=== PATIENT | female | born 2000 | race Caucasian/White ===

== ENCOUNTER 2018-11-10 11:46 | Inpatient (IN) | payer MEDICAID ==
[~2018-11-10] VITALS: Ht 152.4 cm; Wt 80.3 kg
[2018-11-10 13:00] VITALS: BP 117/75
[2018-11-10] MEDS ORDERED: PREN-380 PO (13:39)
[2018-11-10] MEDS ORDERED: BETAMETH ACET/BETAMETH NA PH 30 MG/5 ML VIAL IM STA (19:21)
[2018-11-11] MEDS ORDERED: BETAMETH ACET/BETAMETH NA PH 30 MG/5 ML VIAL IM ONE (04:13)
--- NOTE | 2018-11-11 08:05 | NUR ---
PATIENT HAS BEEN SCREENED AND CATEGORIZED LOW NUTRITION RISK. PATIENT WILL BE SEEN WITHIN 7 DAYS OF ADMISSION. 11/17/[address]
== END 2018-11-11 16:45 | disposition home or self-care (01) | DRG 566 ==
LOC: MLD 11:46 → OBSVTOIN 19:00 → MLD 20:06
PROVIDERS: ADMIT Obstetrics & Gynecology; ATTEND Obstetrics & Gynecology
DX: O99.213 Obesity complicating pregnancy, third trimester (principal); Z3A.35 35 weeks gestation of pregnancy; O60.03 Preterm labor without delivery, third trimester
CPT/HCPCS: G0378 ×7; 76815; 81000; J0702; Q0092

== ENCOUNTER 2018-11-12 04:22 | Observation (INO) | payer MEDICAID ==
[~2018-11-12] VITALS: Ht 157.5 cm; Wt 80.3 kg
[~2018-11-12 04:22] MED LIST: PREN-380 PO
[2018-11-12] MEDS ORDERED: BETAMETH ACET/BETAMETH NA PH 30 MG/5 ML VIAL IM ONE ×2 (04:35→04:38)
[2018-11-12 05:56] VITALS: BP 116/61
== END 2018-11-12 05:20 | disposition home or self-care (01) ==
LOC: EDUNIT# 04:22 → MLD 04:22
PROVIDERS: ADMIT Obstetrics & Gynecology; ATTEND Obstetrics & Gynecology
DX: O62.9 Abnormality of forces of labor, unspecified (principal); Z3A.36 36 weeks gestation of pregnancy; O60.03 Preterm labor without delivery, third trimester
CPT/HCPCS: 59025; 96372; G0378; J0702

== ENCOUNTER 2018-12-06 08:02 | Inpatient (IN) | payer MEDICAID ==
[~2018-12-06] VITALS: Ht 149.9 cm; Wt 81.6 kg
[2018-12-06] MEDS: LACTATED RINGERS 1,000 ML IV SCH (03:00)
[2018-12-06] MEDS ORDERED: PROMETHAZINE 25 MG/ML VIAL IVP PRN (10:05)
[2018-12-06] MEDS ORDERED: NALBUPHINE 10 MG/ML AMP IVP PRN (10:05)
[2018-12-06 10:15] VITALS: BP 123/84
[2018-12-06] MEDS ORDERED: INFLUENZA VACCINE QUAD 0.5 ML SYR IM PRN (10:15)
[2018-12-06] MEDS ORDERED: CARBOPROST 250 MCG/ML AMP IM PRN (10:35)
[2018-12-06] MEDS ORDERED: METHYLERGONOVINE 0.2 MG/ML AMP IM PRN (10:35)
[2018-12-06] MEDS ORDERED: AMPICILLIN 2,000 MG VIAL ONE (10:47)
[2018-12-06] MEDS ORDERED: AMPICILLIN 2,000 MG in NACL 0.9% MINI-BAG PLUS 100 ML IV SCH (11:00)
[2018-12-06 13:00] LABS: BASOPHILS % (AUTO) 0.4 % (0.0-2.0); EOSINOPHILS # (AUTO) 0.2 K/uL (0-0.4); EOSINOPHILS % (AUTO) 2.3 % (0.0-4.0); HEMATOCRIT 37.5 % (36-48); HEMOGLOBIN 12.3 g/dL (12.0-16.0); LYMPHOCYTES # (AUTO) 2.3 K/uL (2.5-16.5); LYMPHOCYTES % (AUTO) 28.9 % (20.5-51.1); MEAN CORPUSCULAR HEMOGLOBIN 28 pg (27-31); MEAN CORPUSCULAR HGB CONC 33 g/dL (33-37); MEAN CORPUSCULAR VOLUME 83.8 fL (80-94); MONOCYTES # (AUTO) 0.5 K/uL (0.8-1.0); MONOCYTES % (AUTO) 6.1 % (1.7-9.3); NEUTROPHILS # (AUTO) 4.9 K/uL (1.8-7.7); NEUTROPHILS % (AUTO) 62.3 % (42.2-75.2); PLATELET COUNT (AUTO) 226 K/uL (140-450); RED BLOOD CELL COUNT(AUTO) 4.48 MIL/uL (4.20-5.40); RED CELL DISTRIBUTION WIDTH 14.5 % (11.6-13.7); WHITE BLOOD COUNT (AUTO) 7.8 K/uL (4.5-11.0)
[2018-12-06 13:02] LABS: ANION GAP 16.5 (8-16); CARBON DIOXIDE 20.3 mmol/L (21-32); CREATININE 0.6 mg/dL (0.6-1.3); POTASSIUM 3.8 mmol/L (3.5-5.1)
[2018-12-06 13:08] LABS: ALBUMIN 2.4 g/dL (3.4-5.0); TOTAL BILIRUBIN 0.2 mg/dL (0.0-1.0)
[2018-12-06] MEDS ORDERED: NALBUPHINE 10 MG/ML AMP ONE ×2 (13:20→23:27)
[2018-12-06 13:43] LABS: APPEARANCE,URINE SL CLOUDY (CLEAR); BILIRUBIN,URINE NEGATIVE (NEGATIVE); BLOOD, URINE 3+ (NEGATIVE); COLOR,URINE YELLOW (YELLOW); LEUKOCYTE ESTERASE ,URINE NEGATIVE (NEGATIVE); NITRITE, URINE NEGATIVE (NEGATIVE); UGLUCOSE NEGATIVE (NEGATIVE)
[2018-12-06 13:59] LABS: RBC,URINE 50-80 /HPF (0-5); WBC,URINE 0-5 /HPF (0-5)
[2018-12-06] MEDS: AMPICILLIN 1,000 MG in NACL 0.9% MINI-BAG PLUS 50 ML IV SCH ×3 (15:00→23:15)
[2018-12-06] MEDS ORDERED: AMPICILLIN 1,000 MG VIAL ONE ×3 (16:48→22:37)
[2018-12-06] MEDS ORDERED: ONDANSETRON 4 MG/2 ML VIAL ONE (18:57)
[2018-12-06] MEDS ORDERED: PROMETHAZINE 25 MG/ML VIAL ONE (23:28)
[2018-12-07] MEDS ORDERED: MAG SULF 20 GM/H2O PREMIX DRIP 500 ML IV ONE ×3 (00:58→20:20)
[2018-12-07 01:16] LABS: BASOPHILS % (AUTO) 0.3 % (0.0-2.0); EOSINOPHILS # (AUTO) 0.2 K/uL (0-0.4); EOSINOPHILS % (AUTO) 1.9 % (0.0-4.0); HEMATOCRIT 39.4 % (36-48); HEMOGLOBIN 12.9 g/dL (12.0-16.0); LYMPHOCYTES # (AUTO) 2.8 K/uL (2.5-16.5); LYMPHOCYTES % (AUTO) 25.3 % (20.5-51.1); MEAN CORPUSCULAR HEMOGLOBIN 28 pg (27-31); MEAN CORPUSCULAR HGB CONC 33 g/dL (33-37); MEAN CORPUSCULAR VOLUME 84.4 fL (80-94); MONOCYTES # (AUTO) 0.9 K/uL (0.8-1.0); NEUTROPHILS # (AUTO) 7.2 K/uL (1.8-7.7); NEUTROPHILS % (AUTO) 64.5 % (42.2-75.2); PLATELET COUNT (AUTO) 237 K/uL (140-450); RED BLOOD CELL COUNT(AUTO) 4.67 MIL/uL (4.20-5.40); RED CELL DISTRIBUTION WIDTH 14.6 % (11.6-13.7); WHITE BLOOD COUNT (AUTO) 11.1 K/uL (4.5-11.0)
[2018-12-07 01:48] LABS: ALBUMIN 2.4 g/dL (3.4-5.0); ANION GAP 16.8 (8-16); CARBON DIOXIDE 20.3 mmol/L (21-32); CREATININE 0.7 mg/dL (0.6-1.3); POTASSIUM 4.1 mmol/L (3.5-5.1); TOTAL BILIRUBIN 0.2 mg/dL (0.0-1.0)
[2018-12-07] MEDS ORDERED: MAG SULF 20 GM/H2O PREMIX DRIP 500 ML IV SCH ×2 (02:00→02:30)
[2018-12-07] MEDS ORDERED: OXYTOCIN 20 UNITS/LR PREMIX 1,000 ML IV ONE (02:42)
[2018-12-07] MEDS ORDERED: AMPICILLIN 1,000 MG VIAL ONE ×6 (02:43→23:52)
[2018-12-07] MEDS: AMPICILLIN 1,000 MG in NACL 0.9% MINI-BAG PLUS 50 ML IV SCH ×4 (02:57→23:58)
[2018-12-07 07:05] VITALS: BP 139/93
[2018-12-07] MEDS ORDERED: BUPIVACAINE 0.125%/NS PREMIX 250 ML ONE (07:53)
--- NOTE | 2018-12-07 08:15 | NUR ---
PATIENT HAS BEEN SCREENED AND CATEGORIZED LOW NUTRITION RISK. PATIENT WILL BE SEEN WITHIN 7 DAYS OF ADMISSION. 12/13/[address]
[2018-12-07] MEDS ORDERED: MISOPROSTOL 25 MCG TAB VG SCH (15:25)
[2018-12-07] MEDS: LACTATED RINGERS 1,000 ML IV SCH (19:18)
[2018-12-08] MEDS ORDERED: MORPHINE PRES FREE 10 MG/10 ML AMP IV ONE (00:32)
[2018-12-08] MEDS ORDERED: METHYLERGONOVINE 0.2 MG/ML AMP ONE (00:35)
[2018-12-08] MEDS ORDERED: SODIUM BICARBONATE 8.4% PFS 50 MEQ/50 ML SYR IVP ONE (00:36)
[2018-12-08] MEDS ORDERED: LIDOCAINE/EPI MPF 2%1:200000 10 ML VIAL INJ ONE (00:36)
[2018-12-08] MEDS ORDERED: HYDROmorphone 1 MG/ML AMP IVP PRN (00:45)
[2018-12-08] MEDS ORDERED: ONDANSETRON 4 MG/2 ML VIAL IVP PRN ×3 (00:45→02:15)
[2018-12-08] MEDS ORDERED: diphenhydrAMINE 50 MG/ML VIAL IVP PRN ×2 (00:45→02:15)
[2018-12-08] MEDS ORDERED: ceFAZolin 1,000 MG VIAL ONE (00:49)
[2018-12-08] MEDS ORDERED: CITRIC ACID/SODIUM CITRATE 30 ML UDC ONE ×2 (01:06→23:20)
[2018-12-08] MEDS ORDERED: ePHEDrine 50 MG/ML VIAL ONE (01:07)
[2018-12-08] MEDS ORDERED: CITRIC ACID/SODIUM CITRATE 30 ML UDC PO ONE (01:30)
[2018-12-08] MEDS ORDERED: OXYTOCIN 20 UNITS/LR PREMIX 1,000 ML IV ONE ×3 (01:54→21:48)
[2018-12-08] MEDS ORDERED: NALBUPHINE 10 MG/ML AMP IVP PRN (02:15)
[2018-12-08] MEDS ORDERED: NALOXONE 0.4 MG/ML VIAL IVP PRN ×2 (02:15)
[2018-12-08] MEDS ORDERED: KETOROLAC 30 MG/ML VIAL IVP PRN (02:15)
[2018-12-08] MEDS ORDERED: MEASLES, MUMPS, AND RUBELLA 1 VIAL SQVAC PRN (02:40)
[2018-12-08] MEDS ORDERED: OXYTOCIN 10 UNITS in LACTATED RINGERS 1,000 ML IV SCH (02:40)
[2018-12-08] MEDS ORDERED: oxyCODONE/APAP 5/325 MG 1 TAB TAB PO PRN (02:40)
[2018-12-08] MEDS ORDERED: ONDANSETRON 4 MG/2 ML VIAL ONE (02:50)
[2018-12-08] MEDS: OXYTOCIN 20 UNITS in LACTATED RINGERS 1,000 ML IV SCH ×2 (02:59→03:11)
[2018-12-08] MEDS ORDERED: KETOROLAC 30 MG/ML VIAL ONE (03:46)
[2018-12-08] MEDS: KETOROLAC 30 MG/ML VIAL IM/IVP SCH ×3 (03:54→18:26)
[2018-12-08] MEDS ORDERED: CARBOPROST 250 MCG/ML AMP IM ONE (08:00)
[2018-12-08] MEDS ORDERED: MISOPROSTOL 100 MCG TAB RC SCH (08:35)
[2018-12-08] MEDS ORDERED: MISOPROSTOL 100 MCG TAB ONE (08:36)
[2018-12-08 08:47] LABS: BASOPHILS % (AUTO) 0.1 % (0.0-2.0); EOSINOPHILS % (AUTO) 0.1 % (0.0-4.0); HEMATOCRIT 27.7 % (36-48); HEMOGLOBIN 9.1 g/dL (12.0-16.0); LYMPHOCYTES # (AUTO) 2.4 K/uL (2.5-16.5); MEAN CORPUSCULAR HEMOGLOBIN 28 pg (27-31); MEAN CORPUSCULAR HGB CONC 33 g/dL (33-37); MEAN CORPUSCULAR VOLUME 84.5 fL (80-94); MONOCYTES % (AUTO) 7.7 % (1.7-9.3); NEUTROPHILS % (AUTO) 74.1 % (42.2-75.2); PLATELET COUNT (AUTO) 208 K/uL (140-450); RED BLOOD CELL COUNT(AUTO) 3.27 MIL/uL (4.20-5.40); RED CELL DISTRIBUTION WIDTH 14.6 % (11.6-13.7); WHITE BLOOD COUNT (AUTO) 13.6 K/uL (4.5-11.0)
[2018-12-08] MEDS ORDERED: MAG SULF 20 GM/H2O PREMIX DRIP 500 ML IV ONE (08:56)
[2018-12-08] MEDS: BISACODYL 10 MG SUPP RC SCH (09:00)
[2018-12-08 12:59] LABS: BASOPHILS % (AUTO) 0.2 % (0.0-2.0); HEMOGLOBIN 8.1 g/dL (12.0-16.0); LYMPHOCYTES # (AUTO) 1.7 K/uL (2.5-16.5); MEAN CORPUSCULAR HEMOGLOBIN 27 pg (27-31); MEAN CORPUSCULAR HGB CONC 32 g/dL (33-37); MEAN CORPUSCULAR VOLUME 84.7 fL (80-94); MONOCYTES # (AUTO) 0.7 K/uL (0.8-1.0); MONOCYTES % (AUTO) 5.6 % (1.7-9.3); NEUTROPHILS # (AUTO) 9.8 K/uL (1.8-7.7); NEUTROPHILS % (AUTO) 80.2 % (42.2-75.2); PLATELET COUNT (AUTO) 167 K/uL (140-450); RED BLOOD CELL COUNT(AUTO) 2.96 MIL/uL (4.20-5.40); RED CELL DISTRIBUTION WIDTH 14.8 % (11.6-13.7); WHITE BLOOD COUNT (AUTO) 12.2 K/uL (4.5-11.0)
[2018-12-08] MEDS ORDERED: PROMETHAZINE 25 MG/ML VIAL IVP PRN (18:45)
[2018-12-08] MEDS ORDERED: METHYLERGONOVINE 0.2 MG/ML AMP IM PRN (18:45)
[2018-12-08] MEDS ORDERED: OXYTOCIN 20 UNITS in LACTATED RINGERS 1,000 ML IV SCH (18:45)
[2018-12-08] MEDS ORDERED: CARBOPROST 250 MCG/ML AMP IM PRN (18:45)
[2018-12-09] MEDS: KETOROLAC 30 MG/ML VIAL IM/IVP SCH ×2 (00:08→06:31)
[2018-12-09 05:57] LABS: BASOPHILS % (AUTO) 0.2 % (0.0-2.0); EOSINOPHILS # (AUTO) 0.2 K/uL (0-0.4); EOSINOPHILS % (AUTO) 2.5 % (0.0-4.0); LYMPHOCYTES # (AUTO) 2.9 K/uL (2.5-16.5); LYMPHOCYTES % (AUTO) 31.3 % (20.5-51.1); MEAN CORPUSCULAR HEMOGLOBIN 28 pg (27-31); MEAN CORPUSCULAR HGB CONC 33 g/dL (33-37); MEAN CORPUSCULAR VOLUME 84.4 fL (80-94); MONOCYTES # (AUTO) 0.8 K/uL (0.8-1.0); MONOCYTES % (AUTO) 8.7 % (1.7-9.3); NEUTROPHILS # (AUTO) 5.2 K/uL (1.8-7.7); NEUTROPHILS % (AUTO) 57.3 % (42.2-75.2); PLATELET COUNT (AUTO) 151 K/uL (140-450); RED BLOOD CELL COUNT(AUTO) 2.17 MIL/uL (4.20-5.40); RED CELL DISTRIBUTION WIDTH 14.7 % (11.6-13.7); WHITE BLOOD COUNT (AUTO) 9.1 K/uL (4.5-11.0)
[2018-12-09 06:44] LABS: HEMATOCRIT 18.3 % (36-48); HEMOGLOBIN 6.1 g/dL (12.0-16.0)
[2018-12-09] MEDS: BISACODYL 10 MG SUPP RC SCH (08:50)
[2018-12-09] MEDS ORDERED: IBUPROFEN 800 MG TAB PO PRN (18:00)
[2018-12-09] MEDS ORDERED: IBUPROFEN 400 MG TAB ONE (18:05)
[2018-12-09] MEDS: oxyCODONE/APAP 5/325 MG 1 TAB TAB PO PRN (20:58)
[2018-12-10 07:40] LABS: BASOPHILS % (AUTO) 0.2 % (0.0-2.0); EOSINOPHILS # (AUTO) 0.3 K/uL (0-0.4); EOSINOPHILS % (AUTO) 3.6 % (0.0-4.0); LYMPHOCYTES # (AUTO) 2.7 K/uL (2.5-16.5); LYMPHOCYTES % (AUTO) 30.3 % (20.5-51.1); MEAN CORPUSCULAR HEMOGLOBIN 28 pg (27-31); MEAN CORPUSCULAR HGB CONC 33 g/dL (33-37); MEAN CORPUSCULAR VOLUME 84.9 fL (80-94); MONOCYTES # (AUTO) 0.6 K/uL (0.8-1.0); MONOCYTES % (AUTO) 6.9 % (1.7-9.3); NEUTROPHILS # (AUTO) 5.3 K/uL (1.8-7.7); PLATELET COUNT (AUTO) 174 K/uL (140-450); RED BLOOD CELL COUNT(AUTO) 2.08 MIL/uL (4.20-5.40); RED CELL DISTRIBUTION WIDTH 14.9 % (11.6-13.7); WHITE BLOOD COUNT (AUTO) 8.9 K/uL (4.5-11.0)
[2018-12-10 08:02] LABS: HEMATOCRIT 17.6 % (36-48); HEMOGLOBIN 5.9 g/dL (12.0-16.0)
[2018-12-10] MEDS ORDERED: FERROUS SULFATE 325 MG TABEC PO SCH (08:22)
[2018-12-10] MEDS: oxyCODONE/APAP 5/325 MG 1 TAB TAB PO PRN ×2 (08:29→16:12)
[2018-12-10] MEDS: FERROUS SULFATE 325 MG TABEC PO SCH ×2 (13:05→17:17)
[2018-12-10] MEDS: BISACODYL 10 MG SUPP RC SCH (17:17)
[2018-12-11] MEDS: oxyCODONE/APAP 5/325 MG 1 TAB TAB PO PRN ×2 (01:54→15:57)
[2018-12-11 07:21] LABS: HEMOGLOBIN 6.3 g/dL (12.0-16.0)
[2018-12-11 07:22] LABS: HEMATOCRIT 19.3 % (36-48)
[2018-12-11] MEDS: FERROUS SULFATE 325 MG TABEC PO SCH ×3 (08:23→17:18)
[2018-12-11] MEDS: BISACODYL 10 MG SUPP RC SCH (09:00)
[2018-12-12] MEDS: oxyCODONE/APAP 5/325 MG 1 TAB TAB PO PRN (07:16)
[2018-12-12] MEDS: FERROUS SULFATE 325 MG TABEC PO SCH (09:27)
== END 2018-12-12 15:30 | disposition home or self-care (01) | DRG 540 ==
LOC: MLD 08:02 → OBSVTOIN 10:51 → MFCC 12-09 13:48
PROVIDERS: ADMIT Obstetrics & Gynecology; ATTEND Obstetrics & Gynecology
PROC: 3E0234Z Introduction of Serum, Toxoid and Vaccine into Muscle, Percutaneous Approach (ICD-10-PCS; 2018-12-08)
PROC: 3E0134Z Introduction of Serum, Toxoid and Vaccine into Subcutaneous Tissue, Percutaneous Approach (ICD-10-PCS; 2018-12-08)
PROC: 10D00Z1 Extraction of Products of Conception, Low, Open Approach (ICD-10-PCS; principal; 2018-12-08 01:00)
DX: O14.14 Severe pre-eclampsia complicating childbirth (principal); D62 Acute posthemorrhagic anemia; O72.1 Other immediate postpartum hemorrhage; O99.824 Streptococcus B carrier state complicating childbirth; O99.02 Anemia complicating childbirth; Z37.0 Single live birth; Z3A.39 39 weeks gestation of pregnancy; O62.1 Secondary uterine inertia; Z23 Encounter for immunization
CPT/HCPCS: G0378 ×3; 36415; 51702; 76856; 80053; 81001; 83735; 85018; 85025; 85384; 85610; 85730; 86592; 86886; 86900; 86901; 86920; J0290; J0690; J1885; J2001; J2270; J2300; J2405; J2550; J2590; J3475; J3490; J7120; Q0092

== ENCOUNTER 2020-04-24 19:20 | Emergency (ER) | payer MEDICAID, OTHER ==
[~2020-04-24] VITALS: Ht 152.4 cm; Wt 80.3 kg
[2020-04-24 19:32] VITALS: BP 129/70
--- NOTE | 2020-04-24 19:32 | NUR ---
TO BED AMBULATORY
[2020-04-24] MEDS ORDERED: DOPPLER MC ONE (19:41)
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
--- NOTE | 2020-04-24 19:56 | NUR ---
ERMD AT BEDSIDE EVALUATING PATIENT.
[2020-04-24 20:19] VITALS: BP 129/70
--- NOTE | 2020-04-24 20:19 | NUR ---
Patient discharged with v/s stable. Written and verbal after care instructions given and explained. Patient verbalized understanding. Ambulatory with steady gait. All questions addressed prior to discharge. Advised to follow up with PMD.
== END 2020-04-24 20:19 | disposition home or self-care (01) ==
LOC: MED 19:20
DX: O46.8X2 Other antepartum hemorrhage, second trimester (principal); Z3A.15 15 weeks gestation of pregnancy; Z79.899 Other long term (current) drug therapy; Z98.890 Other specified postprocedural states
CPT/HCPCS: 81002; 81025; 99282

== ENCOUNTER 2020-04-25 20:12 | Emergency (ER) | payer OTHER ==
[~2020-04-25] VITALS: Ht 157.5 cm; Wt 78.9 kg
[2020-04-25 20:37] VITALS: BP 111/54
--- NOTE | 2020-04-25 20:40 | NUR ---
PT AMBULATED TO BED #7
[2020-04-25 21:41] LABS: BASOPHILS # (AUTO) 0.1 K/uL (0.00-0.22); BASOPHILS % (AUTO) 1.1 % (0.0-2.0); EOSINOPHILS # (AUTO) 0.3 K/uL (0-0.4); EOSINOPHILS % (AUTO) 3.5 % (0.0-4.0); HEMATOCRIT 37.2 % (36-48); HEMOGLOBIN 12.4 g/dL (12.0-16.0); LYMPHOCYTES # (AUTO) 1.9 K/uL (2.5-16.5); LYMPHOCYTES % (AUTO) 27.1 % (20.5-51.1); MEAN CORPUSCULAR HEMOGLOBIN 26 pg (27-31); MEAN CORPUSCULAR HGB CONC 33 g/dL (33-37); MEAN CORPUSCULAR VOLUME 78.2 fL (80-94); MONOCYTES # (AUTO) 0.4 K/uL (0.8-1.0); MONOCYTES % (AUTO) 5.9 % (1.7-9.3); NEUTROPHILS # (AUTO) 4.5 K/uL (1.8-7.7); NEUTROPHILS % (AUTO) 62.4 % (42.2-75.2); PLATELET COUNT (AUTO) 290 K/uL (140-450); RED BLOOD CELL COUNT(AUTO) 4.76 MIL/uL (4.20-5.40); RED CELL DISTRIBUTION WIDTH 16.3 % (11.6-13.7); WHITE BLOOD COUNT (AUTO) 7.2 K/uL (4.8-10.8)
[2020-04-25 22:28] LABS: APPEARANCE,URINE SL CLOUDY (CLEAR); BILIRUBIN,URINE NEGATIVE (NEGATIVE); BLOOD, URINE 3+ (NEGATIVE); COLOR,URINE RED (YELLOW); LEUKOCYTE ESTERASE ,URINE TRACE (NEGATIVE); NITRITE, URINE POSITIVE (NEGATIVE); PH,URINE 5.5 (5.0-9.0); UGLUCOSE NEGATIVE (NEGATIVE)
--- NOTE | 2020-04-25 22:30 | NUR ---
US AT BEDSIDE
[2020-04-25 22:44] LABS: RBC,URINE TOO NUMEROUS TO COUN /HPF (0-5); WBC,URINE 0-5 /HPF (0-5)
--- NOTE | 2020-04-25 23:50 | NUR ---
PATIENT PRESENTS TO ED WITH C/O VAGINAL BLEEDING . PT STATES WAS HERE YESTERDAY FOR THE SAME BUT HAS BEEN BLEEDING MORE TODAY WITH PASSING CLOTS . DENIES N/V/D; SKIN IS PINK/WARM/DRY; AAOX4 WITH EVEN AND STEADY GAIT; LUNGS CLEAR BL; HR EVEN AND REGULAR; PATIENT STATES PAIN OF 0/10 AT THIS TIME; VSS; PATIENT POSITIONED FOR COMFORT; HOB ELEVATED; BEDRAILS UP X2; BED DOWN. ER MADE AWARE OF PT STATUS. Addendum: 04/26/20 at 0008 by CHAYO DED TIME 2049
[2020-04-26 00:05] VITALS: BP 120/76
== END 2020-04-26 00:05 | disposition home or self-care (01) ==
LOC: MED 20:12
DX: O03.89 Complete or unspecified spontaneous abortion with other complications (principal)
CPT/HCPCS: 36415; 76805; 81001; 84702; 85025; 99284

== ENCOUNTER 2020-05-15 12:29 | Day surgery (SDC) | payer OTHER, SELFPAY ==
[~2020-05-15] VITALS: Ht 149.9 cm; Wt 79.4 kg
[2020-05-15 12:45] VITALS: BP 122/80
--- NOTE | 2020-05-15 12:45 | NUR ---
PT TAKEN TO BED 2. AMBULATORY WITH STEADY GAIT.
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
--- NOTE | 2020-05-15 13:05 | NUR ---
FRANCISCO AVALOS AT BEDSIDE FOR EVALUATION.
[2020-05-15 13:21] LABS: BASOPHILS % (AUTO) 0.2 % (0.0-2.0); EOSINOPHILS # (AUTO) 0.3 K/uL (0-0.4); EOSINOPHILS % (AUTO) 4.3 % (0.0-4.0); HEMATOCRIT 37.6 % (36-48); HEMOGLOBIN 12.5 g/dL (12.0-16.0); LYMPHOCYTES # (AUTO) 2.8 K/uL (2.5-16.5); MEAN CORPUSCULAR HEMOGLOBIN 27 pg (27-31); MEAN CORPUSCULAR HGB CONC 33 g/dL (33-37); MEAN CORPUSCULAR VOLUME 81.9 fL (80-94); MONOCYTES # (AUTO) 0.4 K/uL (0.8-1.0); NEUTROPHILS # (AUTO) 2.8 K/uL (1.8-7.7); NEUTROPHILS % (AUTO) 44.5 % (42.2-75.2); PLATELET COUNT (AUTO) 343 K/uL (140-450); RED BLOOD CELL COUNT(AUTO) 4.59 MIL/uL (4.20-5.40); RED CELL DISTRIBUTION WIDTH 17.1 % (11.6-13.7); WHITE BLOOD COUNT (AUTO) 6.3 K/uL (4.8-10.8)
[2020-05-15 13:29] LABS: APPEARANCE,URINE CLEAR (CLEAR); BILIRUBIN,URINE NEGATIVE (NEGATIVE); BLOOD, URINE 1+ (NEGATIVE); COLOR,URINE YELLOW (YELLOW); LEUKOCYTE ESTERASE ,URINE TRACE (NEGATIVE); NITRITE, URINE NEGATIVE (NEGATIVE); PH,URINE 5.5 (5.0-9.0); UGLUCOSE NEGATIVE (NEGATIVE)
[2020-05-15 13:39] LABS: CARBON DIOXIDE 25.7 mmol/L (21-32); CREATININE 0.6 mg/dL (0.6-1.3); POTASSIUM 3.7 mmol/L (3.5-5.1)
[2020-05-15 13:45] LABS: PROTHROMBIN TIME 9.7 secs (10.8-13.4)
[2020-05-15 13:47] LABS: RBC,URINE 11-20 (MOD) /HPF (0-5); WBC,URINE 0-5 /HPF (0-5)
--- NOTE | 2020-05-15 13:47 | NUR ---
Julia phillips sample collected, walked to lab and handed to susana Houser tech.
--- NOTE | 2020-05-15 13:55 | NUR ---
RN transported patient via gurney to surgery.
[2020-05-15] MEDS ORDERED: PROPOFOL 200 MG/20 ML VIAL IV ONE (14:45)
[2020-05-15] MEDS ORDERED: fentaNYL citrate 0.05 MG/ML VIAL ONE (14:45)
[2020-05-15] MEDS ORDERED: MIDAZOLAM 2 MG/2 ML VIAL ONE (14:45)
[2020-05-15] MEDS ORDERED: HYDROmorphone 1 MG/ML AMP IVP PRN (15:15)
[2020-05-15] MEDS ORDERED: ONDANSETRON 4 MG/2 ML VIAL IVP PRN (15:15)
[2020-05-15] MEDS ORDERED: LACTATED RINGERS 1,000 ML IV SCH (15:15)
[2020-05-15] MEDS ORDERED: diphenhydrAMINE 50 MG/ML VIAL IVP PRN (15:15)
[2020-05-15] MEDS ORDERED: MEPERIDINE 25 MG/ML SYR IVP PRN (15:15)
--- NOTE | 2020-05-15 16:03 | NUR ---
RECEIVED REPORT FROM OR NURSE THERESA PANIAGUA PATIENT IS S/P D&C INCOMPLETE WITH CHIEF COMPLAIN OF VAGINAL BLEEDING,PATIENT IS AAOX4, FULL CODE NO KNOWN ALLERGIES NEGATIVE FOR RAPID TEST NO KNOWN HISTORY, IV INTACT ON RIGHT AC SKIN INTACT. CHECK VITAL SIGNS BP 121/75 MA 75 RR 20 TEMP 97.3 AND OXYGEN SATURATION 100%. ASSISTED TO BED SAFETY MEASURES IN PLACE AND CALL LIGHT WITHIN REACH.
--- NOTE | 2020-05-15 16:43 | NUR ---
MRSA NARES COLLECTED AND SENT TO LAB.
--- NOTE | 2020-05-15 17:30 | NUR ---
PATIENT IS BEING DISCHARGED BY PRIMARY DOCTOR TO HOME PATIENT IS STABLE NO DISTRESS NOTED AND DENIES PAIN.
--- NOTE | 2020-05-15 18:26 | NUR ---
DISCHARGED INSTRUCTION GIVEN TO PATIENT AT BEDSIDE, INSTRUCTED TO FOLLOW UP WITH PCP AFTER 1-2 WEEKS OF DISCHARGED, TO AVOID LIFTING HEAVY LOADS AND TO AVOID SEXUAL INTERCOURSE, EAT NUTRITIOUS FOODS TO INCREASE IMMUNITY AND HEALING. INCREASE FLUID INTAKE AND LIGHT EXERCISES. REMOVED IV INTACT AND NO BLEEDING, REMOVED ID BANDS, CHANGED PT TO OWN CLOTHES AND PT TOOK ALL HER BELONGINGS. ESCORTED TO [facility].. PT IS DISCHARGED TO HOME ACCOMPANIED BY . PT IS STABLE
== END 2020-05-15 18:27 | disposition home or self-care (01) ==
LOC: MED 12:29 → MMU 12:45 → UNDOADMOB 12:45 → MDS 12:45 → MTU 12:46 → MMU 14:08 → MTU 14:08 → MDS 18:27 → UNDODISOB 18:27
PROVIDERS: ATTEND Obstetrics & Gynecology
DX: O03.4 Incomplete spontaneous abortion without complication (principal); E66.9 Obesity, unspecified; Z79.01 Long term (current) use of anticoagulants; Z79.899 Other long term (current) drug therapy
CPT/HCPCS: 36415; 59812; 80048; 81001; 84702; 85025; 85610; 85730; 86886; 86900; 86901; 87081; 87426; 88305; J2250; J2704; J3010; J7030; G0378

== ENCOUNTER 2023-05-22 11:01 | Emergency (ER) | payer OTHER ==
[~2023-05-22] VITALS: Ht 152.4 cm; Wt 81.6 kg
[~2023-05-22 11:01] MED LIST changes: +FERR325E14 PO; -PREN-380 PO; +PRETAB PO
[2023-05-22 11:04] VITALS: BP 119/74; PULSE 89; RESP 18; TEMP 97.3; O2SAT 97
[2023-05-22 12:35] LABS: APPEARANCE,URINE CLEAR (CLEAR); BILIRUBIN,URINE NEGATIVE (NEGATIVE); BLOOD, URINE 3+ (NEGATIVE); COLOR,URINE YELLOW (YELLOW); LEUKOCYTE ESTERASE ,URINE 2+ (NEGATIVE); NITRITE, URINE POSITIVE (NEGATIVE); PROTEIN,URINE 3+ (NEGATIVE); UGLUCOSE NEGATIVE (NEGATIVE)
[2023-05-22 12:57] LABS: BASOPHILS % (AUTO) 0.3 % (0.0-2.0); EOSINOPHILS # (AUTO) 0.2 K/uL (0-0.4); EOSINOPHILS % (AUTO) 1.1 % (0.0-4.0); HEMATOCRIT 36.8 % (36-48); HEMOGLOBIN 12.8 g/dL (12.0-16.0); LYMPHOCYTES # (AUTO) 1.8 K/uL (2.5-16.5); LYMPHOCYTES % (AUTO) 12.6 % (20.5-51.1); MEAN CORPUSCULAR HEMOGLOBIN 29 pg (27-31); MEAN CORPUSCULAR HGB CONC 35 g/dL (33-37); MEAN CORPUSCULAR VOLUME 83.4 fL (80-94); MONOCYTES # (AUTO) 0.8 K/uL (0.8-1.0); MONOCYTES % (AUTO) 5.5 % (1.7-9.3); NEUTROPHILS # (AUTO) 11.6 K/uL (1.8-7.7); NEUTROPHILS % (AUTO) 80.5 % (42.2-75.2); PLATELET COUNT (AUTO) 286 K/uL (140-450); RED BLOOD CELL COUNT(AUTO) 4.41 MIL/uL (4.20-5.40); RED CELL DISTRIBUTION WIDTH 13.6 % (11.6-13.7); WHITE BLOOD COUNT (AUTO) 14.4 K/uL (4.8-10.8)
[2023-05-22 13:32] LABS: BACTERIA,URINE >30 (MANY) /HPF (None Seen); MUCUS,URINE None Seen /LPF (None Seen); RBC,URINE TOO NUMEROUS TO COUN /HPF (0-5); SQUAMOUS EPITHELIAL CELL,UR 0-3 (FEW) /LPF (0-3 (FEW)); TRICHOMONAS,URINE None Seen /HPF (None Seen); WBC,URINE TOO MANY TO COUNT /HPF (0-5); WHITE BLOOD CELL CASTS,URINE None Seen /LPF (None Seen); YEAST,URINE None Seen /HPF (None Seen)
[2023-05-22] MEDS ORDERED: CEPH-588 PO (13:47)
[2023-05-22 14:23] VITALS: BP 134/75; PULSE 72; RESP 18; TEMP 98.3; O2SAT 94
== END 2023-05-22 14:22 | disposition home or self-care (01) ==
LOC: MED 11:01
DX: O23.42 Unspecified infection of urinary tract in pregnancy, second trimester (principal); O20.0 Threatened abortion; Z3A.14 14 weeks gestation of pregnancy
CPT/HCPCS: 36415; 81001; 81025; 84702; 85025; 87086; 87186; 99284